=== PATIENT | female | born 1975 | race African-American/Black ===

== ENCOUNTER 2017-02-08 09:51 | Emergency (ER) | payer SELFPAY ==
--- NOTE | ~2017-02-08 | CR172 ---
[facility] A Service of [facility] & [facility] RADIOLOGY TEXT RESULTS PATIENT: JAN CHOUDHURY LOCATION: SED : 75 UNIT #: [id number] AGE: [address]: KENIA TRUJILLO SEX: F ORDER DR: [id number] [address] [address] [id number] E MR#: [id number] #: [id number] NAME: JAN CHOUDHURY. : 1975 SEX: F STUDY DATE/TIME: 02/08/2017 10:20 UNIT: SED ROOM: STUDY DESCRIPTION: CR Knee 3 Views Lt Attending Physician: Kenia Trujillo Aprn Ordering Physician: Kenia Trujillo Aprn Primary Care Physician: Primary Care Physician No MEDICAL IMAGING REPORT This report is preliminary unless electronic signature is present. EXAM Left knee HISTORY Left knee pain for 3 months. FINDINGS AP lateral and sunrise views of the left knee were obtained. The lateral view is a crosstable lateral view. There is a small joint effusion. The bones are normal. There is no fracture. IMPRESSION Small joint effusion, otherwise normal. Dictated by... Heladio Fitzgerald M.D. THIS IS AN ELECTRONICALLY VERIFIED REPORT Heladio Fitzgerald M.D. at 02/08/2017 3:22 PM Genia TD: 02/08/2017 12:13 JOB #: [id number] MEDICAL IMAGING REPORT Page 1 of 1
== END 2017-02-08 11:04 | disposition home or self-care (01) ==
LOC: SED 09:51
DX: M25.462 Effusion, left knee (principal)
CPT/HCPCS: 29530; 73562; 99283